=== PATIENT | male | born 1945 | race Caucasian/White ===

== ENCOUNTER → 2019-06-26 09:27 | Outpatient (CLI) | payer MEDICARE, SELFPAY ==
--- NOTE | 2019-06-26 09:32 | CDU_ITS ---
Reason For Study: Amaurosis Fugax Rt. Velocities/BP Lt. Velocities/BP Prox CCA 84/18 cm/sec. Prox CCA 115/29 cm/sec. Mid CCA 84/19 cm/sec. Mid CCA 77/23 cm/sec. Dist CCA 80/19 cm/sec. Dist CCA 75/19 cm/sec. Prox ICA 62/17 cm/sec. Prox ICA 100/22 cm/sec. Mid ICA 51/16 cm/sec. Mid ICA 75/33 cm/sec. Dist ICA 82/29 cm/sec. Dist ICA 101/41 cm/sec. Rt. ICA/CCA = 1.0. Lt. ICA/CCA = 1.3. Prox ECA 78/8 cm/sec. Prox ECA 66/10 cm/sec. Rt. Vert. 31/6 cm/sec. Lt. Vert. 47/17 cm/sec. Right Extracranial There is homogeneous, smooth atherosclerotic plaque noted in the right common carotid artery. There is intimal thickening but no significant atherosclerotic plaque noted in the right internal carotid artery. There is intimal thickening but no significant atherosclerotic plaque noted in the right external carotid artery. Antegrade flow is noted in the right vertebral artery. Left Extracranial There is intimal thickening but no significant atherosclerotic plaque noted in the left common carotid artery. There is intimal thickening but no significant atherosclerotic plaque noted in the left internal carotid artery. There is intimal thickening but no significant atherosclerotic plaque noted in the left external carotid artery. Antegrade flow is noted in the left vertebral artery. Procedure Carotid Duplex [id number]. Exam performed in department. Interpretation Summary No significant atherosclerotic plaque or stenosis noted in the internal carotid arteries bilaterally. Flow within the vertebral arteries is antegrade bilaterally. Ordering Physician: Antonio Soto Referring Physician: Jurgen Cox Performed By: Yun Rivas, LUKASZ, RVT
== END ==
PROVIDERS: Family Provider Preventive Medicine Occupational Medicine; PCP Preventive Medicine Occupational Medicine; Referring Provider Ophthalmology; Visit Provider Ophthalmology
DX: G45.3 Amaurosis fugax (principal)
CPT/HCPCS: 93880